=== PATIENT | male | born 1955 | race African-American/Black ===

== ENCOUNTER → 2017-11-09 | Outpatient (CLI) | payer MEDICARE ==
[~2017-11-09] MED LIST: AMLO10TA2 PO; ASPI-650 PO; ASPI325T80 PO; CANA100T PO; CELE400C PO; DIAZ10TA PO; FLUT16SP NAS; GABA800T2 PO; IBUP-1223 PO; INSU100I28 SC; LISI-170 PO; LOVA40TA2 PO; META800T PO; METF-366 PO; OXYC-307 PO; OXYC10TA6 PO; OXYC20TA42 PO; PIOG15TA2 PO
== END | disposition home or self-care (01) ==
LOC: CFH 13:04
PROVIDERS: ATTEND Internal Medicine
DX: M47.896 Other spondylosis, lumbar region (principal); M48.07 Spinal stenosis, lumbosacral region; M51.26 Other intervertebral disc displacement, lumbar region
CPT/HCPCS: 72148

== ENCOUNTER → 2018-07-25 | Outpatient (CLI) | payer MEDICARE ==
[~2018-07-25] MED LIST changes: -PIOG15TA2 PO; +PIOG15TA66 PO
== END | disposition home or self-care (01) ==
LOC: CFH 13:20
PROVIDERS: ATTEND Physical Medicine & Rehabilitation
DX: M25.78 Osteophyte, vertebrae (principal); E11.9 Type 2 diabetes mellitus without complications
CPT/HCPCS: 72148